=== PATIENT | female | born 1945 | race Caucasian/White ===

== ENCOUNTER → 2020-11-09 | Day surgery (SDC) | payer MEDICARE, BC ==
[~2020-11-09] MED LIST: AMLO-309 PO; IPRATRPIUM/ALBUTEROL 0.5/2.5MG 3 ML NEBU. NEB PRN; IV RINGERS SOLUTION,LACTATED 1,000 ML IV SCH; LIDOCAINE 2% PF 5 ML VIAL. ONE; MIDAZOLAM HCL PF 2 MG/2 ML VIAL. IV ONE; ONDANSETRON PF 4 MG/2 ML VIAL. IV PRN; PANT40TA6 PO; PROPOFOL 10,000 MCG/ML (20ML) VIAL IV ONE; calcium PO; fish oil PO; iron PO; probiotic PO; vitamin b12 PO
[2020-11-09 11:18] VITALS: BP 138/71
--- NOTE | 2020-11-10 17:23 | PATHOLOGY ---
[facility] Accession Number: [id number] . 01 Material submitted: . esophagus - ESOPHAGEAL BIOPSY 35 CM FOR HARRY'S. Modifiers: 35 CM . 01 Clinical history: . HX OF HARRY'S EGD . 02 Diagnosis: Esophageal biopsies, 35 cm: - Segments of hyperplastic squamous esophageal mucosa, esophagogastric mucosa, and gastric mucosa showing mild chronic inflammation. (JPM:pit; 11/10/2020) QTP 11/10/2020 1622 Local . 02 Comment: There is no specialized columnar epithelium diagnostic of Harry's change. The findings are consistent with reflux changes. (JPM:pit; 11/10/2020) . 02 Electronically signed: . Rene Izquierdo MD, Pathologist NPI- [id number] . 01 Gross description: . The specimen is received in formalin, labeled "Chichi Almonte and esophageal BX 35 cm for Harry's ". It consists of 3 stanley-white, irregular soft tissue fragments ranging from 0.2-0.6 cm in greatest dimension. The specimen is entirely submitted between [facility] [place] in . (MRF; 11/09/2020) MFE/MFE 11/09/2020 1834 Local . 02 Pathologist provided ICD-10: K29.50 . 02 CPT . 317494 Specimen Comment: A courtesy copy of this report has been sent to [phone] Specimen Comment: [phone] Specimen Comment: Report sent to / DR FORD Performed at: [address], [place], [place] [id number] MD Mendel Newman MD Phone: [phone] Performed at: [address] [facility] [address] [place], [place] [id number] MD Rene Izquierdo MD Phone: [phone]
== END | disposition home or self-care (01) ==
LOC: SURG 08:47
PROVIDERS: ATTEND Internal Medicine Gastroenterology
DX: K21.9 Gastro-esophageal reflux disease without esophagitis (principal); K29.50 Unspecified chronic gastritis without bleeding; K22.8 Other specified diseases of esophagus; K44.9 Diaphragmatic hernia without obstruction or gangrene; I10 Essential (primary) hypertension; I25.10 Atherosclerotic heart disease of native coronary artery without angina pectoris; F41.9 Anxiety disorder, unspecified; Z98.890 Other specified postprocedural states; Z79.899 Other long term (current) drug therapy; Z90.49 Acquired absence of other specified parts of digestive tract
CPT/HCPCS: 43239; J2001; J2704; J7120; 88305